=== PATIENT | male | born 1985 | race Caucasian/White ===

== ENCOUNTER → 2019-09-14 16:38 | Outpatient (CLI) | payer BC, SELFPAY ==
--- NOTE | ~2019-09-14 | MR_ITS ---
EXAMINATION: MR lumbar spine wo con DATE: 09/14/2019 17:25 INDICATION: Low back pain. TECHNIQUE: Magnetic resonance imaging (MRI) of the lumbar spine was performed without intravenous con trast. Sequences included sagittal T2-weighted FSE, sagittal T2-weighted FS FSE, sagittal T1-weighted FSE, and axial T2-weighted FSE. COMPARISON: None FINDINGS: There is 5 mm retrolisthesis of L5 on S1. There are Schmorl's nodes at most levels. There i s mildly decreased disc height at L5-S1. The distal spinal cord signal intensity is normal. The conus medullaris is at T12-L1. The following disc levels are specifically discussed: L1-L2: The disc does not extend beyond the endplate margin. There is mild bilateral facet joint osteo arthritis. There is no neural foraminal stenosis. There is no central canal stenosis. L2-L3: The disc does not extend beyond the endplate margin. There is mild bilateral facet joint osteo arthritis. There is mild right neural foraminal stenosis. There is no central canal stenosis. L3-L4: The disc is mildly bulging. There is mild bilateral facet joint osteoarthritis. There is mild bilateral neural foraminal stenosis. There is mild central canal stenosis. L4-L5: The disc is mildly bulging. There is mild bilateral facet joint osteoarthritis. There is mild bilateral neural foraminal stenosis. There is mild central canal stenosis. L5-S1: The disc is bulging with superimposed left subarticular zone extrusion that displaces the left L5 nerve root. There is mild bilateral facet joint osteoarthritis. There is mild bilateral neural fo raminal stenosis. There is mild central canal stenosis. IMPRESSION: 1. Mild lumbar spondylosis. Reviewed, dictated and finalized at location A. GER SALT IMPRESSION: 1. Mild lumbar spondylosis.
== END ==
PROVIDERS: PCP Family Medicine; Visit Provider Family Medicine
DX: M47.896 Other spondylosis, lumbar region (principal)
CPT/HCPCS: 72148

== ENCOUNTER → 2021-01-31 16:13 | Outpatient (CLI) | payer BC, SELFPAY ==
--- NOTE | ~2021-01-31 | MR_ITS ---
EXAMINATION: MR lumbar spine wo con EXAM DATE: 01/31/2021 16:46 INDICATION: Low back pain and left leg pain. TECHNIQUE: Multi-sequential, multiplanar MR images of the lumbar spine were obtained without contrast . Sagittal T1, T2, T2 fat saturation images. Axial T2 weighted images. Comparison is made to prior examination from 09/14/2019. FINDINGS: There is 5 mm retrolisthesis L5 on S1 with moderate loss of this disc height. Mild disc dis ease at L3-4. Some scattered small Schmorl's nodes. The conus medullaris terminates at the L1/2 level and has normal signal intensity and morphology. There are no suspicious marrow signal abnormalities . Paraspinal soft tissue is unremarkable. Level by level evaluation: T12-L1: Disc does not extend beyond the endplate margin. Facet arthropathy: Mild. Neural foraminal stenosis: No stenosis. Central canal stenosis: No stenosis. L1-L2: Disc does not extend beyond the endplate margin. Facet arthropathy: Mild to moderate. Neural foraminal stenosis: No stenosis. Central canal stenosis: No stenosis. L2-L3: There is a minimal diffuse disc bulge. Facet arthropathy: Mild to moderate. Neural foraminal stenosis: No stenosis. Central canal stenosis: No stenosis. L3-L4: There is a mild diffuse disc bulge. Facet arthropathy: Mild to moderate. Neural foraminal stenosis: Mild bilateral. Central canal stenosis: Mild. L4-L5: There is a mild diffuse disc bulge. Facet arthropathy: Mild. Neural foraminal stenosis: Mild bilateral. Central canal stenosis: Mild. L5-S1: There is a mild to moderate diffuse disc bulge, superimposed moderate-sized left central protr usion compressing the traversing left S1 nerve root in the lateral recess Facet arthropathy: Mild to moderate. Neural foraminal stenosis: Mild left. Central canal stenosis: Overall mild but significant left lateral recess stenosis. L5-S1 left central protrusion has developed compared to prior study. IMPRESSION: L5-S1 grade 1 retrolisthesis, moderate sized left central protrusion compressing the S1 n erve root in the lateral recess. Correlate clinically for muscle weakness of plantar flexion, sensor y change of the lateral foot and small toe, and depressed ankle reflex. Reviewed, dictated and finalized at location B. IMPRESSION: L5-S1 grade 1 retrolisthesis, moderate sized left central protrusio n compressing the S1 nerve root in the lateral recess. Correlate clinically fo r muscle weakness of plantar flexion, sensory change of the lateral foot and sm all toe, and depressed ankle reflex.
== END ==
PROVIDERS: Visit Provider Family Medicine
DX: M47.815 Spondylosis without myelopathy or radiculopathy, thoracolumbar region (principal); M48.05 Spinal stenosis, thoracolumbar region; M47.817 Spondylosis without myelopathy or radiculopathy, lumbosacral region; M48.07 Spinal stenosis, lumbosacral region
CPT/HCPCS: 72148

== ENCOUNTER → 2021-02-08 12:12 | Outpatient (CLI) | payer BC, SELFPAY ==
--- NOTE | ~2021-02-08 | MR_ITS ---
EXAMINATION: MR cervical spine wo/w con DATE: 02/08/2021 13:47 INDICATION: Multiple sclerosis. TECHNIQUE: Magnetic resonance imaging (MRI) of the cervical spine was performed without and with 15 m L MultiHance intravenous contrast. Sequences included sagittal and axial T2-weighted FSE, sagittal ST IR FSE, and sagittal and axial T1-weighted FSE. Postcontrast sequences included sagittal and axial T1 -weighted FS FSE. COMPARISON: None FINDINGS: There is 4 degrees dextrocurvature of cervical spine. Vertebral body heights are normal. Th ere is mildly decreased disc height at C4-C5 and moderately decreased disc height at C5-C6. There are approximately 4 lesions of increased T2-weighted signal intensity in the spinal cord. There is a les ion in the medulla. None of the lesions enhance. The following disc levels are specifically discussed : C2-C3: The disc does not extend beyond the endplate margin. There is no uncovertebral joint osteoarth ritis. There is mild bilateral facet joint osteoarthritis. There is no neural foraminal stenosis. The re is no central canal stenosis. C3-C4: The disc does not extend beyond the endplate margin. There is mild left uncovertebral joint os teoarthritis. There is mild bilateral facet joint osteoarthritis. There is mild left neural foraminal stenosis. There is no central canal stenosis. C4-C5: There is a left central extrusion. There is mild left uncovertebral joint osteoarthritis. Ther e is no facet joint osteoarthritis. There is mild left neural foraminal stenosis. There is no central canal stenosis. C5-C6: There is bulging and has an annular fissure. There is moderate bilateral uncovertebral joint o steoarthritis. There is no facet joint osteoarthritis. There is mild bilateral neural foraminal steno sis. There is no central canal stenosis. C6-C7: The disc does not extend beyond the endplate margin. There is no uncovertebral joint osteoarth ritis. There is no facet joint osteoarthritis. There is no neural foraminal stenosis. There is no sandrine tral canal stenosis. C7-T1: The disc does not extend beyond the endplate margin. There is mild left uncovertebral joint os teoarthritis. There is mild bilateral facet joint osteoarthritis. There is mild left neural foraminal stenosis. There is no central canal stenosis. IMPRESSION: 1. Lesions in the spinal cord and medulla, consistent with multiple sclerosis. 2. Moderate cervical spondylosis. Reviewed, dictated and finalized at location A.
--- NOTE | ~2021-02-08 | MR_ITS ---
EXAMINATION: MR brain/brain stem wo/w con DATE: 02/08/2021 13:48 INDICATION: Multiple sclerosis. TECHNIQUE: Magnetic resonance imaging (MRI) of the brain and brainstem was performed without and with 15 mL MultiHance intravenous contrast. Sequences included sagittal and axial T1-weighted FLAIR, axia l T1-weighted FSE, axial diffusion-weighted FS EPI, sagittal T2-weighted FLAIR, axial T2*-weighted GR E, axial T2-weighted FLAIR Propeller, and axial T2-weighted Propeller. Postcontrast sequences include d axial, coronal, and sagittal T1-weighted FSE. Apparent diffusion coefficient (ADC) maps were create d. COMPARISON: Brain MRI 01/22/2018 FINDINGS: There are greater than 15 lesions of increased T2-weighted signal intensity in the brain. O f these lesions, several are periventricular including a new periventricular lesion on the left. At l east 3 lesions are juxtacortical. There is an infratentorial lesion in the jemal. None of the lesions enhance. There is no acute ischemic infarct or intracranial hemorrhage. The ventricles are normal in size. The paranasal sinuses are clear. The orbits are normal. The mastoid air cells are normal. IMPRESSION: 1. Mild white matter disease with a new lesion in the left periventricular region when compared to 01/22/2018, consistent with multiple sclerosis. Reviewed, dictated and finalized at location A. IMPRESSION: 1. Mild white matter disease with a new lesion in the left periventricular anahi on when compared to 01/22/2018, consistent with multiple sclerosis.
[2021-02-08 12:45] LABS: Estimated Glomerular Filt Rate > 60
== END ==
PROVIDERS: PCP Family Medicine; Visit Provider Psychiatry & Neurology Neurology
DX: G35 Multiple sclerosis (principal); M47.812 Spondylosis without myelopathy or radiculopathy, cervical region
CPT/HCPCS: 70553; 72156; A9577

== ENCOUNTER 2021-02-25 15:49 | Outpatient (RCR) | payer BC, SELFPAY ==
--- NOTE | 2021-02-26 10:01 | PTOPEVAL ---
PHYSICAL THERAPY EVALUATION AND PLAN OF CARE Thank you for referring Chad Ahn to [facility].? The patient is scheduled to be seen for therapy? 2x/week for 4 weeks. Please review, sign, date and return this plan of care ABDI. I agree with and certify that the following plan of care is medically necessary. Referring Physician Date Attending Provider: Jack Vital Evaluation Outpatient Past Medical History Neurological History Hx Multiple Sclerosis Yes: 2007, symptom free since 11/29/2014 Evaluation Information Problem Diagnosis low back pain Onset 12/2020 Subjective Information History of low back pain, but Query Text:As Reported By Patient/ this is the first time he has Family had pain that went down his left leg (mother's day 2020). sitting is fine. Getting up from sitting is very difficult , walking for 10minutes or more improves sypmtoms by 70%. Standing still is painful. Most of the pain is in the left buttcheek and down. He also notes that when he stands he leans to the left and when he stands straight it aggravates the sypmtoms some. It takes 20minutes of laying flat to relax and laying on his stomach for 15minutes and then is able to relax. Over time he thinks he is about 20% better. Self Report Pain Assessment Left Spine, Lumbar Reported Pain Level 6 Pain Description Shooting,Spasms,Tightness Pain Frequency Acute,Intermittent Lowest Pain Intensity 0 Greatest Pain Intensity 10 Other Pain Aggravating Factors sit to stand; standing still Pain Score Pain Score 6: Self Report Interventions Used Interventions Used By Clinicians Exercise,Mobilization,Manual Therapy Techniques Pain Relief Interventions Used By Medication Patient Other Alleviating Interventions muscle relaxor Cervical and Lumbar ROM Lumbar ROM Lumbar Flexion Active Knee Query Text:Hands to: Lumbar Extension (0-40) 0 Query Text:Active in Degrees Lower Extremity Muscle Strength Testing Hip Strength Bilateral Hip Flexion Strength 5 Normal Hip Extension Strength 4+ Good + Hip Abduction Strength 5 Normal Knee Strength Bilatera
--- NOTE | 2021-03-11 10:06 | PCPTNOTE ---
PHYSICAL THERAPY DISCHARGE NOTE Attending Provider: Jack Vital Patient:Chad Ahn Date of :1985 Chad called and cancelled his remaining appointments as he is going to have surgery. He attended PT evaluation. Thank you for referring this patient to [facility]. Please review, sign, date and return this discharge summary ABDI. I have been updated about the patient's current status and I agree with discharge from the above service at this time. Referring Physician Date
== END 2021-05-13 10:05 | disposition home or self-care (01) ==
LOC: ANHPT 15:49
PROVIDERS: PCP Family Medicine
DX: M51.26 Other intervertebral disc displacement, lumbar region (principal)
CPT/HCPCS: 97110; 97162; 97163

== ENCOUNTER 2022-01-07 12:05 | Outpatient (CLI) | payer OTHER, SELFPAY ==
--- NOTE | ~2022-01-07 | US_ITS ---
EXAMINATION: US venous doppler [facility] DATE: 01/07/2022 12:49 INDICATION: Left lower limb pain and swelling. Other specified soft tissue disorders. TECHNIQUE: Grayscale ultrasound images without and with compression and Doppler ultrasound images of the left lower extremity veins were obtained. COMPARISON: None. FINDINGS: The visualized portions of left common femoral vein, profunda (deep) femoral vein, femoral vein, popl iteal vein, peroneal veins, posterior tibial veins, and greater saphenous vein outflow are patent. In the medial distal lower leg, there is a 1.6 x 3.5 x 1.0 cm hypoechoic subcutaneous mass without inte rnal vascular flow. IMPRESSION: 1. No deep venous thrombosis. 2. Subcutaneous mass in the medial distal lower leg, likely a hematoma. Reviewed, dictated and finalized at location A.
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
== END 2022-01-07 12:06 | disposition home or self-care (01) ==
PROVIDERS: PCP Family Medicine; Visit Provider Family Medicine
DX: S99.912A Unspecified injury of left ankle, initial encounter (principal); M79.89 Other specified soft tissue disorders
CPT/HCPCS: 73590; 73610; 93971

== ENCOUNTER 2023-04-13 16:30 | Outpatient (RCR) | payer OTHER, SELFPAY ==
--- NOTE | 2023-04-10 14:19 | PTOPEVAL1 ---
Assessment and note entered by Laura Roman, PT Evaluation Information Assessment Status Evaluation Diagnosis dizziness and giddiness Therapy condition BPPV Right ear Onset 04/03/23 Subjective Information Started last Thursday, was leaning to the right and doesn't remember what he was doing. Had a vertigo previously that ended up being related to MS but since has been on new medication since 2015 has been doing well. Works on cars in non-airconditioned garage Difficulty with automotive lift sometimes as has to get down on the ground and look up to place on car. Layig on right side in bed, when first rolls to right side, will have spinning about 7-10 seconds. Reported Pain Level Pain Score 0: Self Report Assessment PT Clinical Summary Pt presents with complaints of dizziness that started about a week ago. Has symptoms with certain movements especially laying on right side and turning over in bed. Reports the symptoms last 7-10 seconds. Pt vestibular testing (+) for what appears to be right sided BPPV. Right El was performed today. Pt will benefit from physical therapy to address deficits and return pt to prior level of function without symptoms. Plan of Care Interventions Neuro Re-education,Therapeutic Exercise Other Interventions SENIOR ACCOUNT EXECUTIVE PT Services Indicated Yes Treatment Frequency and 1-2x weekly x 4 weeks Duration These treatments will address the objective and functional deficits as defined above. The patient will be advanced safely and appropriately in order for the patient to progress towards his/her prior level of function. Additional exercises will be introduced and as well as a comprehensive home exercise program upon discharge, if needed, ?to ensure carryover of functional gains achieved in the clinic. This treatment plan has been reviewed and agreement upon by the patient.
--- NOTE | 2023-04-10 14:20 | OPREHPOC ---
Outpatient Therapy Plan of Care This is a Multidisciplinary Plan of Care that may contain components documented by all disciplines (PT, OT, and ST.) PT Problem 1 PT Problem #1 Knowledge Deficit PT Goal 1 Goal Pt will be independent in HEP Pt will verbalize understanding of diagnosis and prognosis Target Visit 8 PT Problem 2 PT Problem #2 Impaired Balance PT Goal 1 Goal Pt will demo ability to stand Tandem stance eyes closed firm surface with right leg forwrad 30 seconds Target Visit 8 PT Goal 2 Goal Pt will demo ability to stand Tandem stance eyes closed firm surface with left leg forwrad 16 seconds Target Visit 8 PT Problem 3 PT Problem #3 Impaired Sensation PT Goal 1 Goal Pt will report resolution of symptoms with head motions
--- NOTE | 2023-04-14 09:23 | PTOPDC ---
Assessment and note entered by Calvin Lam, PT Discharge Information Assessment Status Discharge Diagnosis BPPV Onset 04/03/23 Subjective Information Reports that he has had no episodes of dizziness since initial evaluation. Feels 99% better. Has not been limited since first treatment. Reported Pain Level Pain Score 0: Self Report Assessment PT Clinical Summary Patient has no lingering signs or symptoms of BPPV . Negative for testing today as Nystagmus or dizziness were not elicited. Suitable for D/C to HEP as patient was educated in home performance of El maneuver. Plan of Care PT Services Indicated No-Suitable for Discharge
== END 2023-04-14 10:08 | disposition home or self-care (01) ==
LOC: ANHHIPT 16:30
PROVIDERS: PCP Physician Assistant Medical; Visit Provider Nurse Practitioner Family
DX: H81.11 Benign paroxysmal vertigo, right ear (principal)
CPT/HCPCS: 95992; 97112; 97161